=== PATIENT | female | born 1980 | race Caucasian/White ===

== ENCOUNTER 2016-09-16 12:41 | Inpatient (IN) | payer BC, OTHER ==
[2016-09-16] MEDS ORDERED: Terbutaline 1 MG/ML SDV SUBCUT PRN (14:25)
[2016-09-16] MEDS ORDERED: Carboprost Tromethamine 250 MCG/1 ML Amp IM PRN (14:25)
[2016-09-16] MEDS ORDERED: Lidocaine 1% 50 ML MDV INJECT PRN (14:25)
[2016-09-16] MEDS ORDERED: Water For Irrigation,Sterile 1,000 ML Container IRR PRN (14:25)
[2016-09-16] MEDS ORDERED: Nalbuphine 10 MG/1 ML Vial IVPUSH PRN (14:25)
[2016-09-16] MEDS ORDERED: Sodium Chloride 0.9% 2.5 ML Syringe FLUSH PRN (14:25)
[2016-09-16] MEDS ORDERED: Sodium Chloride 0.9% 10 ML Syringe FLUSH PRN (14:25)
[2016-09-16] MEDS ORDERED: Misoprostol 200 MCG Tab PO PRN (14:25)
[2016-09-16] MEDS ORDERED: Methylergonovine 0.2 MG/1 ML Amp IM PRN (14:25)
[2016-09-16] MEDS ORDERED: Oxytocin/Lactated Ringers 30 UNIT/500 ML BAG IV SCH ×2 (14:30)
[2016-09-16] MEDS: Lactated Ringers 1,000 ML IV SCH (14:50)
[2016-09-16] MEDS ORDERED: Ampicillin 2 GM in Sodium Chloride 0.9% 100 ML IV ONE (15:00)
[2016-09-16] MEDS: Ampicillin 1 GM in Sodium Chloride 0.9% 50 ML IV SCH ×2 (19:28→23:51)
[2016-09-16] MEDS: Butorphanol 1 MG/ML SDV IVPUSH PRN (22:54)
[2016-09-17] MEDS: Lactated Ringers 1,000 ML IV SCH ×4 (00:50→15:18)
[2016-09-17] MEDS: Butorphanol 1 MG/ML SDV IVPUSH PRN ×2 (00:50→02:55)
--- NOTE | 2016-09-17 01:39 | PCM.PREANE ---
Preanesthetic Assessment - Anesthesia/Transfusion/Family Hx Anesthesia History: Prior Anesthesia Without Reaction - Review of Systems General: No Symptoms Pulmonary: No Symptoms Cardiovascular: No Symptoms Gastrointestinal: No Symptoms Neurological: No Symptoms Other: Reports: None - Physical Assessment Height: 1.7 m Weight: 114.759 kg Mental Status: Alert & Oriented x3 Dentition: Reports: Normal Dentition ROM/Head Extension: Full Lungs: Clear to Auscultation, Normal Respiratory Effort Cardiovascular: Regular Rate, Regular Rhythm - Lab Values: Laboratory Last Values WBC 9.36 K/uL (4.0-11.0) 09/16/16 14:45 RBC 3.81 M/uL (4.30-5.90) L 09/16/16 14:45 Hgb 9.8 g/dL (12.0-16.0) L 09/16/16 14:45 Hct 31.0 % (36.0-46.0) L 09/16/16 14:45 MCV 81.4 fL (80.0-98.0) 09/16/16 14:45 MCH 25.7 pg (27.0-32.0) L 09/16/16 14:45 MCHC 31.6 g/dL (31.0-37.0) 09/16/16 14:45 RDW Std Deviation 39.8 fl (28.0-62.0) 09/16/16 14:45 RDW Coeff of Zoe 13 % (11.0-15.0) 09/16/16 14:45 Plt Count 290 K/uL (150-400) 09/16/16 14:45 MPV 10.60 fL (7.40-12.00) 09/16/16 14:45 Nucleated RBC % 0.0 /100WBC 09/16/16 14:45 Nucleated RBCs # 0 K/uL 09/16/16 14:45 Membrane Rupture POSITIVE 09/16/16 13:10 Blood Type B POSITIVE 09/16/16 14:45 Antibody Screen NEGATIVE 09/16/16 14:45 - Allergies Allergies/Adverse Reactions: Allergies Allergy/AdvReac Type Severity Reaction Status Date / Time No Known Allergies Allergy Verified 09/16/16 12:56 - Acknowledgements Anesthesia Type Planned: Epidural Pt an Appropriate Candidate for the Planned Anesthesia: Yes Alternatives and Risks of Anesthesia Discussed w Pt/Guardian: Yes Pt/Guardian Understands and Agrees with Anesthesia Plan: Yes PreAnesthesia Questionnaire HEENT History: Reports: None Cardiovascular History: Reports: None Respiratory History: Reports: None Gastrointestinal History: Reports: None Genitourinary History: Reports: None 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: , Other (See Below) : 2 Other OB/BYN History: genital warts Endocrine/Metabolic History: Reports: Other (See Below) Other Endocrine/Metabolic History: hypoglycemia - Past Surgical History HEENT Surgical History: Reports: Oral Surgery, Tonsillectomy GI Surgical History: Reports: Bariatric Procedure, Cholecystectomy - SUBSTANCE USE Smoking Status *Q: Never Smoker Recreational Drug Use History: No - CURRENT (IN HOUSE) MEDS Current Meds: Current Medications Butorphanol Tartrate (Stadol) 1 mg IVPUSH Q1H PRN PRN Reason: Pain Last Admin: 09/17/16 00:50 Dose: 1 mg Carboprost Tromethamine (Hemabate Ds) 250 mcg IM ASDIRECTED PRN PRN Reason: Post Hemorrhage Lactated Ringer's (Ringers, Lactated) 1,000 mls @ 150 mls/hr IV ASDIRECTED YEVGENIY Last Admin: 09/17/16 00:50 Dose: 150 mls/hr Oxytocin/Lactated Ringer's (Pitocin In Lr 30 Units/500 Ml) 30 unit in 500 mls @ 2 mls/hr IV TITRATE YEVGENIY; 2 MUNITS/MIN PRN Reason: Protocol Stop: 09/17/16 14:29 Oxytocin/Lactated Ringer's (Pitocin In Lr 30 Units/500 Ml) 30 unit in 500 mls @ 2 mls/hr IV TITRATE YEVGENIY; 2 MUNITS/MIN PRN Reason: Protocol Last Titration: 09/16/16 23:48 Dose: 20 munits/min, 20 mls/hr Ampicillin Sodium 1 gm/ Sodium (Chloride) 50 mls @ 100 mls/hr IV Q4H YEVGENIY Last Admin: 09/16/16 23:51 Dose: 100 mls/hr Lidocaine HCl (Xylocaine 1%) 50 ml INJECT .ONCE PRN PRN Reason: Laceration repair Methylergonovine Maleate (Methergine) 0.2 mg IM ASDIRECTED PRN PRN Reason: Post Hemorrhage Misoprostol (Cytotec) 200 mcg PO .ONCE PRN PRN Reason: Post Hemorrhage Sodium Chloride (Saline Flush) 10 ml FLUSH ASDIRECTED PRN PRN Reason: Keep Vein Open Sodium Chloride (Saline Flush) 2.5 ml FLUSH ASDIRECTED PRN PRN Reason: Keep Vein Open Sterile Water (Sterile Water For Irrigation) 1,000 ml IRR ASDIRECTED PRN PRN Reason: delivery Terbutaline Sulfate (Brethine) 0.25 mg SUBCUT ASDIRECTED PRN PRN Reason: Tacysystole Discontinued Medications Ampicillin Sodium 2 gm/ Sodium (Chloride) 100 mls @ 200 mls/hr IV ONETIME ONE Stop: 09/16/16 15:29 Last Admin: 09/16/16 15:21 Dose: 200 mls/hr Nalbuphine HCl (Nubain) 10 mg IVPUSH Q1H PRN PRN Reason: Pain (severe 7-10) Stop: 09/16/16 16:26
[2016-09-17] MEDS ORDERED: Ropivacaine HCl/PF 100 ML ONE ×2 (01:41→11:44)
[2016-09-17] MEDS ORDERED: fentaNYL 100 MCG/2 ML SDV ONE ×2 (01:41→11:44)
[2016-09-17] MEDS: Ampicillin 1 GM in Sodium Chloride 0.9% 50 ML IV SCH ×4 (02:55→15:48)
[2016-09-17] MEDS ORDERED: Bupivacaine 0.5% 10 ML SDV ONE ×4 (06:53→13:44)
[2016-09-17] MEDS ORDERED: Witch Hazel Medicated Pads 40/Jar TOP PRN (16:44)
[2016-09-17] MEDS ORDERED: Benzocaine/Menthol 20%-0.5% Spray 78 GM Cannister TOP PRN (16:44)
[2016-09-17] MEDS ORDERED: Docusate Sodium 100 MG Cap PO PRN (16:44)
[2016-09-17] MEDS ORDERED: Ibuprofen 800 MG Tab PO PRN (16:44)
[2016-09-17] MEDS ORDERED: Lanolin 100% Cream 7 GM Tube TOP PRN (16:44)
[2016-09-17] MEDS ORDERED: Methylergonovine 0.2 MG/1 ML Amp IM PRN (16:44)
[2016-09-17] MEDS ORDERED: oxyCODONE 5 MG Tab PO PRN (16:44)
[2016-09-17] MEDS ORDERED: Bisacodyl 10 MG Supp RECTAL PRN (16:44)
--- NOTE | 2016-09-17 18:40 | OR ---
SURGEON: Jane Tan M.D. DATE OF PROCEDURE: 09/17/2016 PREOPERATIVE DIAGNOSES: 1. Thirty-eight week intrauterine . 2. Premature rupture of membranes with induction and delivery. POSTOPERATIVE DIAGNOSES: 1. Thirty-eight week intrauterine . 2. Premature rupture of membranes with induction and delivery. PROCEDURES: 1. Group B Strep prophylaxis. 2. Pitocin induction of labor. 3. Term spontaneous vaginal delivery with repair of second-degree laceration. ANESTHESIA: Epidural and local. ESTIMATED BLOOD LOSS: Less than 300 mL. FINDINGS: Live born female, score 8 and 9, weighing 3145 g. Placenta was delivered spontaneously. Schultze intact with 3 vessels. Marginal cord insertion was noted. Second-degree perineal laceration was repaired. COMPLICATIONS: None known. DISPOSITION: Mother and baby are in LDRP in good condition. BRIEF HISTORY: This is a 36-year-old female. She is G1, P0. She presented at 38 and 6/7th weeks' gestation with spontaneous rupture of membranes. Retrospectively, she feels that this happened at 2:00 a.m. However, she presented approximately 12 hours later with a positive AmniSure and no regular contractions. Therefore, she was started on Pitocin. She was initially 1 to 2 cm, 50% effaced, -2 station. She had category 1 heart tones throughout labor. Over the next 16 hours she progressed to 5 cm. She received an epidural for pain control. Intrauterine pressure catheter had been placed. Pitocin was at 20 milliunits per minute and she was very uncomfortable, therefore the Pitocin was discontinued and restarted at 40 milliunits per minute. With this, she had a more regular contraction pattern and again continued to have category 1 heart tones. She received multiple doses of ampicillin throughout labor. She progressed to complete. DESCRIPTION OF PROCEDURE: With the patient in dorsal lithotomy position, she pushed over at approximately 1 hour and 30 minutes time period to a 5+ station, at which time the head was delivered spontaneously and atraumatically over the perineum with support with subsequent delivery of the 's shoulders and body without any difficulty. The infant was bulb suctioned by nose and mouth, and after the cord had ceased to pulsate it was doubly clamped and cut. The infant was handed to the mother in the presence of the nurse attending delivery. The infant is a liveborn female, score 8 and 9, weighing 3145 g. Cord blood was collected for cord ABGs as well as routine cord blood sampling. Pitocin was initiated after delivery of the to assist with delivery. The placenta which was delivered spontaneously Schultze intact with 3 vessels. Upon inspection of the pelvis and perineum, there was a second-degree perineal laceration and a right labial laceration which was hemostatic. The perineal laceration was repaired with a running lock suture of 2-0 Caprosyn for the vaginal mucosa, deep running suture of the same for the perineum, and a subcuticular suture of the same for the skin. Additional lidocaine was utilized as she was not receiving much pain relief with her epidural and an additional [id number] suture was placed for to complete the repair. This being completed, she was still noted to have some bleeding. The vagina was inspected. It was found that there was no vaginal laceration with bleeding. There was no cervical laceration and clots were expressed with fundal massage. She did receive a single dose of dose of Methergine with aggressive fundal massage, and the bleeding did resolve without significant blood loss. There were no known complications. Final sponge, needle, and instrument count were correct. and mother are in LDRP in good condition. KYM / SHINE /[id number]
[2016-09-17] MEDS: Acetaminophen 500 MG Tab PO PRN (20:57)
--- NOTE | 2016-09-18 07:27 | PCM48HPAN ---
Post Anesthesia Note - EVALUATION WITHIN 48HRS OF ANESTHETIC Vital Signs in Normal Range: Yes Patient Participated in Evaluation: Yes Respiratory Function Stable: Yes Airway Patent: Yes Cardiovascular Function Stable: Yes Hydration Status Stable: Yes Pain Control Satisfactory: Yes Nausea and Vomiting Control Satisfactory: Yes Mental Status Recovered: Yes
--- NOTE | 2016-09-18 08:46 | PCM.PNPP ---
- General Info Date of Service: 09/18/16 Functional Status: Reports: Pain Controlled, Tolerating Diet, Ambulating, Urinating, Other (denies dizziness, shortness of breath or palpitations.) - Review of Systems General: Reports: No Symptoms HEENT: Reports: No Symptoms Pulmonary: Reports: No Symptoms Cardiovascular: Reports: No Symptoms Gastrointestinal: Reports: No Symptoms Genitourinary: Reports: No Symptoms Musculoskeletal: Reports: No Symptoms Skin: Reports: No Symptoms Neurological: Reports: No Symptoms Psychiatric: Reports: No Symptoms - Patient Data Vital Signs - Most Recent: Last Vital Signs Temp 37.1 C 09/18/16 07:37 Pulse 87 09/18/16 07:37 Resp 16 09/18/16 07:37 BP 145/97 H 09/18/16 07:37 Pulse Ox 98 09/18/16 07:37 Weight - Most Recent: 114.759 kg Lab Results - Last 24 Hours: Laboratory Results - last 24 hr 09/18/16 Range/Units 04:48 Hgb 7.9 L (12.0-16.0) g/dL Hct 24.3 L (36.0-46.0) % Med Orders - Current: Current Medications Acetaminophen (Tylenol Extra Strength) 1,000 mg PO Q4H PRN PRN Reason: Pain Last Admin: 09/17/16 20:57 Dose: 1,000 mg Benzocaine/Menthol (Dermoplast Pain Relief 20%-0.5% [place]) 78 gm TOP ASDIRECTED PRN PRN Reason: Perineal Comfort Measure Last Admin: 09/17/16 21:09 Dose: 78 gm Bisacodyl (Dulcolax) 10 mg RECTAL .ONCE PRN PRN Reason: Constipation Docusate Sodium (Colace) 100 mg PO BID PRN PRN Reason: Constipation Last Admin: 09/17/16 20:57 Dose: 100 mg Emollient Ointment (Lansinoh Hpa) 0 gm TOP ASDIRECTED PRN PRN Reason: Sore Nipples Last Admin: 09/17/16 21:08 Dose: 7 gm Ibuprofen (Motrin) 800 mg PO Q6H PRN PRN Reason: Pain Methylergonovine Maleate (Methergine) 0.2 mg IM .ONCE PRN PRN Reason: Excessive Vaginal Bleeding Oxycodone HCl (Oxycodone) 5 mg PO Q2H PRN PRN Reason: Pain Witch Betty (Tucks) 1 pad TOP ASDIRECTED PRN PRN Reason: comfort care Last Admin: 09/17/16 21:09 Dose: 1 pad Discontinued Medications Bupivacaine HCl (Sensorcaine-Mpf 0.5%) Confirm Administered Dose 20 ml .ROUTE .STK-MED ONE Stop: 09/17/16 06:54 Last Admin: 09/17/16 08:54 Dose: Not Given Bupivacaine HCl (Sensorcaine-Mpf 0.5%) Confirm Administered Dose 10 ml .ROUTE .STK-MED ONE Stop: 09/17/16 09:45 Last Admin: 09/17/16 12:12 Dose: Not Given Bupivacaine HCl (Sensorcaine-Mpf 0.5%) Confirm Administered Dose 10 ml .ROUTE .STK-MED ONE Stop: 09/17/16 11:45 Last Admin: 09/17/16 12:12 Dose: Not Given Bupivacaine HCl (Sensorcaine-Mpf 0.5%) Confirm Administered Dose 10 ml .ROUTE .STK-MED ONE Stop: 09/17/16 13:45 Last Admin: 09/17/16 18:34 Dose: Not Given Butorphanol Tartrate (Stadol) 1 mg IVPUSH Q1H PRN PRN Reason: Pain Last Admin: 09/17/16 02:55 Dose: 1 mg Carboprost Tromethamine (Hemabate Ds) 250 mcg IM ASDIRECTED PRN PRN Reason: Post Hemorrhage Fentanyl (Sublimaze) Confirm Administered Dose 100 mcg .ROUTE .STK-MED ONE Stop: 09/17/16 01:42 Last Admin: 09/17/16 08:54 Dose: Not Given Fentanyl (Sublimaze) Confirm Administered Dose 100 mcg .ROUTE .STK-MED ONE Stop: 09/17/16 11:45 Last Admin: 09/17/16 12:12 Dose: Not Given Ampicillin Sodium 2 gm/ Sodium (Chloride) 100 mls @ 200 mls/hr IV ONETIME ONE Stop: 09/16/16 15:29 Last Admin: 09/16/16 15:21 Dose: 200 mls/hr Lactated Ringer's (Ringers, Lactated) 1,000 mls @ 150 mls/hr IV ASDIRECTED YEVGENIY Last Admin: 09/17/16 15:18 Dose: 150 mls/hr Oxytocin/Lactated Ringer's (Pitocin In Lr 30 Units/500 Ml) 30 unit in 500 mls @ 2 mls/hr IV TITRATE YEVGENIY; 2 MUNITS/MIN PRN Reason: Protocol Stop: 09/17/16 14:29 Last Admin: 09/17/16 16:25 Dose: 999 mls/hr Oxytocin/Lactated Ringer's (Pitocin In Lr 30 Units/500 Ml) 30 unit in 500 mls @ 2 mls/hr IV TITRATE YEVGENIY; 2 MUNITS/MIN PRN Reason: Protocol Last Titration: 09/17/16 16:15 Dose: 999 mls/hr Ampicillin Sodium 1 gm/ Sodium (Chloride) 50 mls @ 100 mls/hr IV Q4H YEVGENIY Last Admin: 09/17/16 15:48 Dose: 100 mls/hr Ropivacaine (Naropin 0.2%) Confirm Administered Dose 100 mls @ as directed .ROUTE .STK-MED ONE Stop: 09/17/16 01:42 Last Admin: 09/17/16 08:54 Dose: Not Given Ropivacaine (Naropin 0.2%) Confirm Administered Dose 100 mls @ as directed .ROUTE .STK-MED ONE Stop: 09/17/16 11:45 Last Admin: 09/17/16 12:12 Dose: Not Given Lidocaine HCl (Xylocaine 1%) 50 ml INJECT .ONCE PRN PRN Reason: Laceration repair Last Admin: 09/17/16 17:12 Dose: 50 ml Methylergonovine Maleate (Methergine) 0.2 mg IM ASDIRECTED PRN PRN Reason: Post Hemorrhage Last Admin: 09/17/16 16:27 Dose: 0.2 mg Misoprostol (Cytotec) 200 mcg PO .ONCE PRN PRN Reason: Post Hemorrhage Nalbuphine HCl (Nubain) 10 mg IVPUSH Q1H PRN PRN Reason: Pain (severe 7-10) Stop: 09/16/16 16:26 Sodium Chloride (Saline Flush) 10 ml FLUSH ASDIRECTED PRN PRN Reason: Keep Vein Open Sodium Chloride (Saline Flush) 2.5 ml FLUSH ASDIRECTED PRN PRN Reason: Keep Vein Open Sterile Water (Sterile Water For Irrigation) 1,000 ml IRR ASDIRECTED PRN PRN Reason: delivery Last Admin: 09/17/16 17:12 Dose: 1,000 ml Terbutaline Sulfate (Brethine) 0.25 mg SUBCUT ASDIRECTED PRN PRN Reason: Tacysystole - Infant Interaction Disposition, : [place] in Room with Family Interaction: Holding Infant Feeding: Breastfed Infant; Nursed Well Support Person: - Recovery Exam Fundal Tone: Firm Fundal Level: At Umbilicus Fundal Placement: Midline Lochia Amount: Scant Lochia Color: Rubra/Red Perineum Description: Other (see below) Other Perinuem Description: 2nd degree laceration Episiotomy/Laceration: Approximated Bladder Status: Voiding Urinary Elimination: Voided - Exam General: Alert, Oriented HEENT: Pupils Equal Neck: Supple Lungs: Normal Respiratory Effort Cardiovascular: Regular Rate GI/Abdominal Exam: Soft, Non-Tender, No Organomegaly, No Distention, No Abnormal Bruit, No Mass, Pelvis Stable Extremities: No: No Pedal Edema (1+ bilateral, ) Skin: Warm, Dry, Intact Neurological: No New Focal Deficit Psy/Mental Status: Alert, Normal Affect, Normal Mood - Problem List & Annotations (1) PROM with onset of labor more than 24 hours following rupture SNOMED Code(s): 789150359 Code(s): O42.10 - RAJIV ROM, ONSET LABOR > 24 HR FOL RUPT, UNSP WEEKS OF GEST Status: Acute Current Visit: Yes (2) Vaginal delivery SNOMED Code(s): 636526234 Code(s): O80 - ENCOUNTER FOR FULL-TERM UNCOMPLICATED DELIVERY Status: Acute Current Visit: Yes - Problem List Review Problem List Initiated/Reviewed/Updated: Yes - My Orders Last 24 Hours: My Active Orders 09/17/16 16:44 Acetaminophen [Tylenol Extra Strength] 1,000 mg PO Q4H PRN Benzocaine/Menthol [Dermoplast Pain Relief 20%-0.5% [place]] 78 gm TOP ASDIRECTED PRN Bisacodyl [Dulcolax] 10 mg RECTAL .ONCE PRN Docusate Sodium [Colace] 100 mg PO BID PRN Ibuprofen [Motrin] 800 mg PO Q6H PRN Lanolin [Lansinoh HPA] See Dose Instructions TOP ASDIRECTED PRN Methylergonovine [Methergine] 0.2 mg IM .ONCE PRN Victor Hugo Hernández [Tucks] 1 pad TOP ASDIRECTED PRN oxyCODONE 5 mg PO Q2H PRN Resuscitation Status Routine 09/17/16 16:45 Patient Status [ADT] Routine May Shower [RC] ASDIRECTED Up ad Lexi [RC] ASDIRECTED Vital Signs [RC] PER UNIT ROUTINE Assess Lochia [WOMSER] Per Unit Routine Assess Uterine Involution [WOMSER] Per Unit Routine Peripheral IV Discontinue [OM.PC] Routine 09/17/16 16:46 Perineal Care [OM.PC] Per Unit Routine 09/18/16 Dinner Regular Diet [DIET] - Assessment Assessment:: PPD #1 after , discussed anemia. She was anemic on admission, but not on additional iron. She denies any symptoms related to anemia. She would like to be discharged this afternoon. - Plan Plan:: Discharge instructions reviewed. She feels OTC pain medication will be adequate. She will also get OTC iron and continue vitamins.
[2016-09-18 12:42] VITALS: BP 137/72
[2016-09-18] MEDS: Acetaminophen 500 MG Tab PO PRN (12:43)
== END 2016-09-18 18:35 | disposition home or self-care (01) | DRG 560 ==
LOC: MW.OBCHECK 12:41 → MW.OB 12:44 → UNDOADMOB 14:26 → MW.OB 14:26 → MW.OBCHECK 14:26 → OBSVTOIN 23:20 → INTOOBSV 23:20 → MW.OB 09-17 16:14 → OBSVTOIN 09-17 16:14 → MW.OB 09-17 21:30 → UNDODISIN 09-18 18:35
PROVIDERS: ADMIT Obstetrics & Gynecology; ATTEND Obstetrics & Gynecology
PROC: 10E0XZZ Delivery of Products of Conception, External Approach (ICD-10-PCS; principal; 2016-09-16)
PROC: 3E033VJ Introduction of Other Hormone into Peripheral Vein, Percutaneous Approach (ICD-10-PCS; 2016-09-16)
PROC: 0KQM0ZZ Repair Perineum Muscle, Open Approach (ICD-10-PCS; 2016-09-16)
DX: O42.02 Full-term premature rupture of membranes, onset of labor within 24 hours of rupture (principal); O70.1 Second degree perineal laceration during delivery; O99.02 Anemia complicating childbirth; O99.824 Streptococcus B carrier state complicating childbirth; Z3A.38 38 weeks gestation of pregnancy; Z37.0 Single live birth
CPT/HCPCS: 01967; 01996; 36415; 59025; 84112; 85014; 85018; 85027; 86850; 86900; 86901; A9270-GY; J0290; J0595; J2210; J2795; J3010; J7030; J7050; J7120

== ENCOUNTER 2022-06-17 10:11 | Day surgery (SDC) | payer BC ==
[~2022-06-17 10:11] MED LIST: Lactated Ringers 1,000 ML IV SCH; Midazolam 1 MG/ML 2 ML SDV ONE; Propofol 200 MG/20 ML SDV ONE; Sodium Chloride 0.9% 10 ML Syringe FLUSH PRN; Sodium Chloride 0.9% 2.5 ML Syringe FLUSH PRN; Sodium Chloride 0.9% 20 ML SDV IV PRN
[2022-06-17 12:12] VITALS: BP 134/81; PULSE 63
== END 2022-06-17 12:15 | disposition home or self-care (01) ==
LOC: MW.SDS 10:11
PROVIDERS: ATTEND Surgery
DX: K52.832 Lymphocytic colitis (principal); K29.50 Unspecified chronic gastritis without bleeding; K21.9 Gastro-esophageal reflux disease without esophagitis; K44.9 Diaphragmatic hernia without obstruction or gangrene; Z90.49 Acquired absence of other specified parts of digestive tract; Z87.891 Personal history of nicotine dependence
CPT/HCPCS: 43239; 45380; 81025; J2250; J2704; J7120; 00813